=== PATIENT | male | born 1990 | race Caucasian/White ===

== ENCOUNTER 2017-02-04 07:11 | Emergency (ER) | payer BC ==
[2017-02-04] MEDS ORDERED: Sodium Chloride 0.9% 1,000 ML IV SCH (07:45)
[2017-02-04] MEDS ORDERED: Ondansetron 4 MG/2 ML SDV IVPUSH ONE (07:45)
--- NOTE | 2017-02-04 08:00 | EDM.PDOC ---
ED HPI GENERAL MEDICAL PROBLEM - General Chief Complaint: Gastrointestinal Problem Stated Complaint: FEVER Time Seen by Provider: 02/04/17 07:44 - History of Present Illness INITIAL COMMENTS - FREE TEXT/NARRATIVE: HISTORY AND PHYSICAL: History of present illness: Patient is a 26-year-old male presents with concern of nausea vomiting and dark stool for the last 3 or 4 days he states he felt feverish at night He denies abdominal pain he st age 14 he did have a ulcer that was diagnosed via endoscopy he has also been using Pepto-Bismol but states that her stools predated the utilization of the Pepto-Bismol. No cough or other concernates Review of systems: As per history of present illness and below otherwise all systems reviewed and negative. Past medical history: As per history of present illness and as reviewed below otherwise noncontributory. Surgical history: As per history of present illness and as reviewed below otherwise noncontributory. Social history: No reported history of drug or alcohol abuse. Family history: As per history of present illness and as reviewed below otherwise noncontributory. Physical exam: HEENT: Atraumatic, normocephalic, pupils reactive, negative for conjunctival pallor or scleral icterus, mucous membranes dry , throat clear, neck supple, nontender, trachea midline. Lungs: Clear to auscultation, breath sounds equal bilaterally, chest nontender. Heart: S1S2, regular, negative for clicks, rubs, or JVD. Abdomen: Soft, nondistended, nontender. Negative for masses or hepatosplenomegaly. Negative for costovertebral tenderness. Pelvis: Stable nontender. Genitourinary: Deferred. Rectal: Deferred. Extremities: Atraumatic, negative for cords or calf pain. Neurovascular unremarkable. Neuro: Awake, alert, oriented. Cranial nerves II through XII unremarkable. Cerebellum unremarkable. Motor and sensory unremarkable throughout. Exam nonfocal. Diagnostics: CBC CMP lipase UA Therapeutics: Normal saline 1 L bolus Zofran 4 mg IV Impression: #1 vomiting #2 history of peptic ulcer disease #3 dehydration Definitive disposition and diagnosis as appropriate pending reevaluation and review of above. stomache pain and body aches Pain Score (Numeric/FACES): 9 - Related Data Allergies Allergy/AdvReac Type Severity Reaction Status Date / Time No Known Allergies Allergy Verified 02/04/17 07:39 Home Meds: Home Meds . [No Known Home Meds] 03/23/14 [History] Past Medical History - Past Health History Medical/Surgical History: Denies Medical/Surgical History HEENT History: Reports: None Cardiovascular History: Reports: None Respiratory History: Reports: None Gastrointestinal History: Reports: None Genitourinary History: Reports: None Musculoskeletal History: Reports: None Neurological History: Reports: None Psychiatric History: Reports: None Endocrine/Metabolic History: Reports: None Dermatologic History: Reports: None - Infectious Disease History Infectious Disease History: Reports: None - Past Surgical History HEENT Surgical History: Reports: None Respiratory Surgical History: Reports: None GI Surgical History: Reports: None Male Surgical History: Reports: None Social & Family History - Family History Family Medical History: Noncontributory - Tobacco Use Smoking Status *Q: Current Every Day Smoker Years of Tobacco use: 3 Packs/Tins Daily: 1 Used Tobacco, but Quit: No Second Hand Smoke Exposure: No - Caffeine Use Caffeine Use: Reports: Energy drinks Caffeine Use Comment: 1 - 2 per day - Alcohol Use Days Per Week of Alcohol Use: 0 - Recreational Drug Use Recreational Drug Use: No ED ROS GENERAL - Review of Systems Review Of Systems: ROS reveals no pertinent complaints other than HPI. ED EXAM, GENERAL - Physical Exam Exam: See Below (See dictation) Course - Vital Signs Last Recorded V/S: Last Vital Signs Temp 36.7 C 02/04/17 07:34 Pulse 106 H 02/04/17 07:48 Resp 16 02/04/17 07:48 BP 117/74 02/04/17 07:48 Pulse Ox 96 02/04/17 07:48 - Orders/Labs/Meds Orders: Active Orders 24 hr Category Date Time Status EKG Documentation Completion [RC] STAT Care 02/04/17 07:45 Active Sodium Chloride 0.9% [Normal Saline] 1,000 ml Med 02/04/17 07:45 Active IV ASDIRECTED Medication Orders Sodium Chloride (Normal Saline) 1,000 mls @ 999 mls/hr IV ASDIRECTED CHRISTINE Last Admin: 02/04/17 07:48 Dose: 999 mls/hr Labs: Laboratory Tests 02/04/17 02/04/17 02/04/17 Range/Units 07:54 07:54 07:54 WBC 9.85 (4.0-11.0) K/uL RBC 4.82 (4.50-5.90) M/uL Hgb 14.8 (13.0-17.0) g/dL Hct 41.8 (38.0-50.0) % MCV 86.7 (80.0-98.0) fL MCH 30.7 (27.0-32.0) pg MCHC 35.4 (31.0-37.0) g/dL RDW Std Deviation 38.7 (28.0-62.0) fl RDW Coeff of Kannan 12 (11.0-15.0) % Plt Count 157 (150-400) K/uL MPV 9.50 (7.40-12.00) fL Neut % (Auto) 90.5 H (48.0-80.0) % Lymph % (Auto) 4.9 L (16.0-40.0) % [place] % (Auto) 4.5 (0.0-15.0) % Eos % (Auto) 0.1 (0.0-7.0) % Baso % (Auto) 0.0 (0.0-1.5) % Neut # (Auto) 8.9 H (1.4-5.7) K/uL Lymph # (Auto) 0.5 L (0.6-2.4) K/uL [place] # (Auto) 0.4 (0.0-0.8) K/uL Eos # (Auto) 0.0 (0.0-0.7) K/uL Baso # (Auto) 0.0 (0.0-0.1) K/uL Nucleated RBC % 0.0 /100WBC Nucleated RBCs # 0 K/uL Sodium 136 (136-146) mmol/L Potassium 3.7 (3.5-5.1) mmol/L Chloride 103 (98-110) mmol/L Carbon Dioxide 22 (21-31) mmol/L BUN 18 (6.0-23.0) mg/dL Creatinine 1.2 (0.6-1.5) mg/dL Est Cr Clr Drug Dosing 92.47 mL/min Estimated GFR (MDRD) > 60.0 ml/min Glucose 113 H (60-110) mg/dL Calcium 8.6 L (8.8-10.8) mg/dL Total Bilirubin 1.7 H (0.1-1.5) mg/dL AST 19 (5-40) IU/L ALT 16 (8-54) IU/L Alkaline Phosphatase 85 (40-150) Total Protein 7.3 (6.0-8.0) g/dL Albumin 4.2 (3.5-5.0) g/dL Globulin 3.1 (2.0-3.5) g/dL Albumin/Globulin Ratio 1.4 (1.3-2.8) Lipase 29 (7-80) U/L Meds: Medications Generic Name Dose Route Start Last Admin Trade Name Freq PRN Reason Stop Dose Admin Sodium Chloride 1,000 mls @ 999 mls/hr 02/04/17 07:45 02/04/17 07:48 Normal Saline IV 999 mls/hr ASDIRECTED CHRISTINE Administration Discontinued Medications Generic Name Dose Route Start Last Admin Trade Name Freq PRN Reason Stop Dose Admin Ondansetron HCl 4 mg 02/04/17 07:45 02/04/17 08:04 Zofran IVPUSH 02/04/17 07:46 4 mg ONETIME ONE Administration Departure - Departure Time of Disposition: 08:56 Disposition: Home, Self-Care 01 Condition: good Clinical Impression: GI bleed, Dehydration, Vomiting Forms: ED Department Discharge Additional Instructions: The following information is given to patients seen in the emergency department who are being discharged to home. This information is to outline your options for follow-up care. We provide all patients seen in our emergency department with a follow-up referral. The need for follow-up, as well as the timing and circumstances, are variable depending upon the specifics of your emergency department visit. If you don't have a primary care physician on staff, we will provide you with a referral. We always advise you to contact your personal physician following an emergency department visit to inform them of the circumstance of the visit and for follow-up with them and/or the need for any referrals to a consulting specialist. The emergency department will also refer you to a specialist when appropriate. This referral assures that you have the opportunity for followup care with a specialist. All of these measure are taken in an effort to provide you with optimal care, which includes your followup. Under all circumstances we always encourage you to contact your private physician who remains a resource for coordinating your care. When calling for followup care, please make the office aware that this follow-up is from your recent emergency room visit. If for any reason you are refused follow-up, please contact the [facility] emergency department at and asked to speak to the emergency department charge nurse. [facility] Specialty Care - General Surgery Professional [address], [address] [place] [address] Protonix as prescribed keep scheduled appointment as discussed stop drinking return as needed as discussed - My Orders Last 24 Hours: My Active Orders 02/04/17 07:45 EKG Documentation Completion [RC] STAT Sodium Chloride 0.9% [Normal Saline] 1,000 ml IV ASDIRECTED - Assessment/Plan Last 24 Hours: My Active Orders 02/04/17 07:45 EKG Documentation Completion [RC] STAT Sodium Chloride 0.9% [Normal Saline] 1,000 ml IV ASDIRECTED
[2017-02-04 08:30] LABS: CHLORIDE,CL 103 mmol/L (98-110); SODIUM,NA 136 mmol/L (136-146)
[2017-02-04 09:15] VITALS: BP 140/70
== END 2017-02-04 09:13 | disposition home or self-care (01) ==
LOC: MW.ED 07:11
DX: K92.2 Gastrointestinal hemorrhage, unspecified (principal); E86.0 Dehydration; R11.10 Vomiting, unspecified; F17.210 Nicotine dependence, cigarettes, uncomplicated
CPT/HCPCS: 36415; 80053; 83690; 85025; 93005; 96361; 96374; 99284; J2405; J7040

== ENCOUNTER 2024-05-27 09:56 | Emergency (ER) | payer BC ==
[2024-05-27 10:10] VITALS: BP 147/94; PULSE 102
[2024-05-27] MEDS: Ketorolac 60 MG/2 ML SDV IM ONE (10:13)
[2024-05-27] MEDS: Amoxicillin/Clavulanate K 875-125 MG Tab PO ONE (10:13)
[2024-05-27] MEDS: traMADol 50 MG Tab PO ONE (10:37)
== END 2024-05-27 10:39 | disposition home or self-care (01) ==
LOC: MW.ED 09:56
DX: J01.00 Acute maxillary sinusitis, unspecified (principal); K21.9 Gastro-esophageal reflux disease without esophagitis; Z79.899 Other long term (current) drug therapy
CPT/HCPCS: 96372; 99283; A9270; J1885

== ENCOUNTER 2024-05-31 13:49 | Emergency (ER) | payer SELFPAY ==
[2024-05-31] MEDS ORDERED: Sodium Chloride 0.9% 20 ML SDV IV PRN (14:24)
[2024-05-31] MEDS: diphenhydrAMINE 50 MG/ML SDV IVPUSH ONE (14:40)
[2024-05-31] MEDS: Ketorolac 30 MG/ML SDV IVPUSH ONE (14:41)
[2024-05-31] MEDS: Acetaminophen 500 MG Tab PO ONE (14:42)
[2024-05-31] MEDS: Sodium Chloride 0.9% 1,000 ML IV ONE (14:42)
[2024-05-31] MEDS: Prochlorperazine 10 MG/2 ML SDV IM ONE (14:42)
[2024-05-31] MEDS: Sodium Chloride 0.9% 10 ML Syringe FLUSH PRN (14:46)
[2024-05-31] MEDS: Sodium Chloride 0.9% 2.5 ML Syringe FLUSH PRN (14:47)
[2024-05-31 15:46] VITALS: BP 149/89; PULSE 87
== END 2024-05-31 15:45 | disposition home or self-care (01) ==
LOC: MW.ED 13:49
DX: R51.9 Headache, unspecified (principal); R09.81 Nasal congestion; Z79.899 Other long term (current) drug therapy; Z86.59 Personal history of other mental and behavioral disorders
CPT/HCPCS: 70450; 96372; 96374; 96375; 99284; A9270; J0780; J1200; J1885; J3490; J7030; 99283

== ENCOUNTER 2024-10-08 23:10 | Emergency (ER) | payer BC ==
[2024-10-09 00:12] VITALS: BP 158/95; PULSE 98
== END 2024-10-09 00:54 | disposition left against medical advice (07) ==
LOC: MW.ED 23:10
DX: Z53.21 Procedure and treatment not carried out due to patient leaving prior to being seen by health care provider (principal)